=== PATIENT | female | born 1970 | race African-American/Black ===

== ENCOUNTER → 2023-12-17 10:26 | Outpatient (REF) | payer OTHER, SELFPAY ==
[2023-12-17 12:10] LABS: Rubella Positive
[2023-12-17 12:27] LABS: Hepatitis B Surface Antibody Positive
== END ==
LOC: OHS 10:26
PROVIDERS: ATTENDING PHYSICIAN Nurse Practitioner Family
DX: Z23 Encounter for immunization (principal)
CPT/HCPCS: 36415; 86480; 86706; 86735; 86762; 86765; 86787

== ENCOUNTER → 2023-12-23 07:23 | Outpatient (REF) | payer OTHER, SELFPAY ==
[2023-12-25 12:33] LABS: Quantiferon Mitogen minus NIL 9.95 IU/mL; Quantiferon NIL 0.05 IU/mL; Quantiferon Plus TB1 minus NIL 0.02 IU/mL (<=0.34); Quantiferon Plus TB2 minus NIL 0.01 IU/mL (<=0.34); Quantiferon TB Gold Plus Negative (Negative)
== END ==
LOC: OHS 07:23
PROVIDERS: ATTENDING PHYSICIAN Nurse Practitioner Family
DX: Z23 Encounter for immunization (principal)
CPT/HCPCS: 86480